=== PATIENT | female | born 1990 | race African-American/Black ===

== ENCOUNTER 2021-05-01 15:32 | Outpatient (REF) | payer OTHER, SELFPAY ==
[2021-05-01 16:07] LABS: COVID-19 Test Negative (Negative); IDNOW Serial# 9DD0AD1C
== END 2021-05-01 15:33 | disposition home or self-care (01) ==
LOC: HO.LAB 15:32
PROVIDERS: Referring Provider Internal Medicine; Visit Provider Internal Medicine
DX: Z20.822 Contact with and (suspected) exposure to COVID-19 (principal)
CPT/HCPCS: 87635